=== PATIENT | female | born 1980 | race American Indian/Alaskan Native ===

== ENCOUNTER 2016-09-23 08:46 | Emergency (ER) | payer MEDICAID ==
[2016-09-23 09:36] LABS: Basophils % (Auto) 0.3 % (0.0-1.8); Eosinophils % (Auto) 1.2 % (0.0-4.3); Hemoglobin 12.6 gm/dl (10.1-14.3); Mean Corpuscular HGB Conc 33 % (30-34); Mean Corpuscular Hemoglobin 32 pg (28-32); Mean Corpuscular Volume 98 fl (79-97); Platelet Count 172 K/mm3 (140-440); Red Blood Count 3.89 M/mm3 (3.65-5.03); Red Cell Distribution Width 14.1 % (13.2-15.2); White Blood Count 6.3 K/mm3 (4.5-11.0)
--- NOTE | 2016-09-23 09:47 | Emergency Department Report ---
Entered by ANGEL LINN, acting as scribe for SOLA MENA PA. Chief Complaint: Vaginal Bleeding Stated Complaint: 17WKS/BLEEDING Time Seen by Provider: 09/23/16 09:18 - HPI History of Present Illness: Patient that is 17 weeks presents to the ED c/o vaginal bleeding. Denies abdominal pain, back pain, nausea, vomiting, fever, and chills. - ROS Review of Systems: All system are negative unless stated in HPI above. - Exam Vital Signs: Vital Signs 09/23/16 09:06 Temperature 98.5 F Pulse Rate 90 Respiratory 20 Rate Blood Pressure 120/95 O2 Sat by Pulse 100 Oximetry Physical Exam: General: well nourished, well developed, nontoxic in appearance, in no acute distress Abdomen: TTP in pelvic area. Normal bowel sounds in all quadrants. Back: no CVA tenderness MSE screening note: Focused history and physical exam performed. Due to findings the following was ordered: ED Medical Decision Making - Medical Decision Making Medical decision making: Patient seen by provider in triage area. Appropriate protocol activated and patient to main ED to be seen provider ED Disposition for MSE Condition: Stable This documentation as recorded by the scribe,ANGEL LINN,accurately reflects the service I personally performed and the decisions made by me,SOLA MENA PA.
[2016-09-23 10:45] LABS: Bacteria,Urine 1+ /HPF (Negative); Bilirubin,Urine NEG (Negative); Blood,Urine NEG (Negative); Ketones,Urine NEG (Negative); Leukocyte Esterase,Urine LG (Negative); Mucus,Urine 2+ /HPF; Nitrite,Urine NEG (Negative); Protein,Urine <15 mg/dL mg/dL (Negative); Urobilinogen,Urine < 2.0 mg/dL (<2.0)
--- NOTE | 2016-09-23 11:55 | Ultrasound Report ---
ULTRASOUND OB LESS THAN 14 WEEKS - TRANSABDOMINAL INDICATION: Vaginal bleeding. Serum beta-hCG of 91,667 units. COMPARISON: None similar at this institution. FINDINGS: Transabdominal pelvic sonography performed in this patient with LMP of 06/22/2016 and estimated clinical age of 13 weeks and 2 days. An anteverted, gravid 14.5 x 11.4 x 13.2 cm uterus demonstrates a single, live intrauterine gestation with heart rate of 152 beats per minute. At least 4 uterine fibroids noted, the largest towards the fundus 3.2 x 3.1 cm on image 28, approximately 2.2 cm mid uterine fibroid posteriorly, image 30 and at least 2 lower uterine fibroids on images 32-34, the larger approximately 2.7 x 2.1 cm. Cervix closed, approximately 3.4 cm in length. No pelvic free fluid. Mean crown-rump length of 6.4 cm corresponds to 12 weeks and 6 days. Right ovary is 4.7 x 2.2 x 2.5 cm with a 1.4 cm follicular cyst. Unremarkable 2.8 x 2.4 x 2.1 cm left ovary. CONCLUSION: 1. Single, live intrauterine gestation with an ultrasound estimated age of 12 weeks and 6 days and MASSIMO of 04/01/2017. 2. Few other findings as myomatous uterus, as described. Thank you for the opportunity to participate in this patient's care.
--- NOTE | 2016-09-23 11:58 | Emergency Department Report ---
HPI - General Chief Complaint: Vaginal Bleeding Time Seen by Provider: 09/23/16 09:14 - HPI HPI: This is a 36-year-old Afro-Malagasy female who presents the emergency department with complaint of intermittent vaginal spotting while . The patient thinks she is about 16 weeks as she went to a women's clinic about 3 weeks ago and had a positive test and was told she was 13 weeks at that time based on last menstrual period, which was June 22. With this the patient is . She has been taking vitamins but does not have any [facility] care at this time. She denies any other past medical history. She says that the vaginal spotting is very mild and intermittent. She denies any abdominal pain, back pain, vaginal discharge, dysuria, fever. No recent travel or sick contacts at home. ED Past Medical Hx - Past Medical History Previous Medical History?: Yes Additional medical history: Vaginal delivery x 1 - Surgical History Past Surgical History?: Yes Additional Surgical History: Tonsilectomy - Social History Smoking Status: Current Some Day Smoker Substance Use Type: Marijuana, Prescribed - Medications Home Medications: Home Medications Medication Instructions Recorded Confirmed Last Taken Type Nitrofurantoin [place]/M-Cryst 100 mg PO BID #14 capsule 09/23/16 Unknown Rx [Macrobid CAP] Tablet 1 tab PO DAILY 09/23/16 09/23/16 09/23/16 History ED Review of Systems ROS: Stated complaint: 17WKS/BLEEDING Other details as noted in HPI Comment: All other systems reviewed and negative Constitutional: denies: chills, fever Eyes: denies: eye pain, eye discharge, vision change ENT: denies: ear pain, throat pain Respiratory: denies: cough, shortness of breath, wheezing Cardiovascular: denies: chest pain, palpitations Gastrointestinal: denies: abdominal pain, nausea, diarrhea Genitourinary: other (vaginal spotting). denies: urgency, dysuria, discharge Musculoskeletal: denies: back pain, joint swelling, arthralgia Skin: denies: rash, lesions Neurological: denies: headache, weakness, paresthesias Physical Exam - Physical Exam Vital Signs: Vital Signs 09/23/16 09:06 Temperature 98.5 F Pulse Rate 90 Respiratory 20 Rate Blood Pressure 120/95 O2 Sat by Pulse 100 Oximetry Physical Exam: GENERAL: The patient is well-developed well-nourished. HEENT: Normocephalic. Atraumatic. Extraocular motions are intact. Patient has moist mucous membranes. Pupils equal reactive to light bilaterally. NECK: Supple. Trachea is midline. CHEST/LUNGS: Clear to auscultation. There is no respiratory distress noted. HEART/CARDIOVASCULAR: Regular. There is no tachycardia. There is no gallop rub or murmur. ABDOMEN: Abdomen is soft, nontender. Patient has normal bowel sounds. There is no abdominal distention. SKIN: Skin is warm and dry. NEURO: The patient is awake, alert, and oriented. The patient is cooperative. The patient has no focal neurologic deficits. The patient has normal speech. MUSCULOSKELETAL: There is no tenderness or deformity. There is no limitation range of motion. There is no evidence of acute injury. ED Course Vital Signs 09/23/16 09:06 Temperature 98.5 F Pulse Rate 90 Respiratory 20 Rate Blood Pressure 120/95 O2 Sat by Pulse 100 Oximetry ED Medical Decision Making - Lab Data Result diagrams: 09/23/16 09:19 - Radiology Data Radiology results: report reviewed ultrasound shows a live intrauterine at 12 weeks and 6 days. The patient has a fibroid uterus. - Medical Decision Making 36-year-old female presents with and intermittent vaginal spotting. She thinks she is about 17-16 weeks based on last menstrual cycle but ultrasound today shows intrauterine at about 12 weeks and 6 days. She has been taking vitamins but otherwise no [facility] APPRENTICE care thus far. Patient has a UTI and was treated with Macrobid and will be given a production of the same. She'll be discharged home to follow up with [facility] APPRENTICE in next few days and return to the ER if any worsening of her symptoms or any acute distress. - Differential Diagnosis , threatened miscarriage, spontaneous miscarriage, fibroids, UTI Critical Care Time: No Critical care attestation.: If time is entered above; I have spent that time in minutes in the direct care of this critically ill patient, excluding procedure time. ED Disposition Clinical Impression: Threatened miscarriage Qualifiers: Weeks of gestation: 13 weeks Qualified Code(s): Z3A.13 - 13 weeks gestation of UTI (urinary tract infection) Qualifiers: Urinary tract infection type: acute cystitis Hematuria presence: without hematuria Qualified Code(s): N30.00 - Acute cystitis without hematuria Disposition: DISCHARGED TO HOME OR SELFCARE Is pt being admited?: No Condition: Stable Instructions: (ED), Threatened Miscarriage (ED), Urinary Tract Infection in Women (ED) Additional Instructions: Please follow-up with an [facility] APPRENTICE in the next few days. Continue with your vitamins. I have prescribed you and antibiotics to take for a urinary tract infection. Do not take any other medications that are not prescribed by a physician. Return to the emergency department with any worsening of her symptoms or any acute distress. Prescriptions: Nitrofurantoin Angelina/M-Cryst [Macrobid CAP] 100 mg PO BID #14 capsule Referrals: [facility] [Primary Care Provider] - 3-5 Days DAVID STANLEY MD [Staff Physician] - 3-5 Days [facility] [Provider Group] - 3-5 Days [facility] [Provider [facility]] - 3-5 Days Time of Disposition: 12:21
[2016-09-23] MEDS: MACROBID PO ONE (12:13)
[2016-09-23 12:52] VITALS: BP 124/68
== END 2016-09-23 12:51 | disposition home or self-care (01) ==
LOC: ED 08:46
DX: O20.0 Threatened abortion (principal); N30.00 Acute cystitis without hematuria; F17.200 Nicotine dependence, unspecified, uncomplicated; F12.10 Cannabis abuse, uncomplicated; Z88.8 Allergy status to other drugs, medicaments and biological substances
CPT/HCPCS: 36415; 76805; 81001; 84702; 85025; 86850; 86900; 86901

== ENCOUNTER 2017-03-30 22:47 | Inpatient (IN) | payer MEDICAID ==
[2017-03-30] MEDS ORDERED: PITOCin/NS 20 UNIT/1000ML DRIP 20 UNITS/1,000 ML BAG IV SCH (23:45)
[2017-03-30] MEDS ORDERED: LACTATED RINGERS 2,000 ML ONE (23:54)
[2017-03-30] MEDS ORDERED: BRETHINE SUB-Q PRN (23:55)
[2017-03-30] MEDS ORDERED: SUBLIMAZE IV PRN (23:55)
[2017-03-30] MEDS ORDERED: ePHEDrine SULFATE IV PRN (23:55)
[2017-03-30] MEDS ORDERED: XYLOCAINE 2% INFILTRATI ONE (23:55)
[2017-03-30] MEDS ORDERED: BRETHINE IVP PRN (23:55)
--- NOTE | 2017-03-31 00:02 | History and Physical Report ---
History of Present Illness Date of examination: 03/30/17 Date of admission: 03/30/17 23:38 Chief complaint: Active labor History of present illness: 37 year old female presents with contractions all day. Patient reports active movement. She denies vaginal bleeding or leaking of fluid. Quad screen positive for increased Down's risk; pt. did not have amnio. Pt. is advanced maternal age. One hour sugar test was elevated during ; 3 hour OGTT was normal. Patient has anemia. 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 denies: smoking (smoked THC during but patient states she has quit) - Obstetrical History Expected Date of Delivery: 04/01/17 Actual Gestation: 39 Week(s) 6 Day(s) : 2 Para: 1 Hx # Term Pregnancies: 2 Number of Pregnancies: 0 Spontaneous Abortions: 0 Induced : 0 Number of Living Children: 1 Medications and Allergies Allergies Allergy/AdvReac Type Severity Reaction Status Date / Time citric acid Allergy Rash Verified 09/23/16 09:05 Home Medications Medication Instructions Recorded Confirmed Last Taken Type Nitrofurantoin [place]/M-Cryst 100 mg PO BID #14 capsule 09/23/16 Unknown Rx [Macrobid CAP] Tablet 1 tab PO DAILY 09/23/16 09/23/16 09/23/16 History Active Meds: Active Medications Ephedrine Sulfate (Ephedrine Sulfate) 10 mg IV Q2M PRN PRN Reason: Hypotension Stop: 03/31/17 00:00 Fentanyl (Sublimaze) 100 mcg IV Q2H PRN PRN Reason: Labor Pain Lactated Ringer's (Lactated Ringers) 1,000 mls @ 125 mls/hr IV DIRECT LULA Oxytocin/Sodium Chloride (Pitocin/Ns 20 Unit/1000ml Drip) 20 units in 1,000 mls @ 125 mls/hr IV DIRECT LULA Lidocaine (Xylocaine 2%) 20 ml INFILTRATI ONCE ONE Stop: 03/30/17 23:56 Terbutaline Sulfate (Brethine) 0.25 mg SUB-Q ONCE PRN PRN Reason: Hyperstimulation/Hypertonicity Stop: 03/30/17 23:56 Terbutaline Sulfate (Brethine) 0.25 mg IVP ONCE PRN PRN Reason: Hyperstimulation/Hypertonicity Stop: 03/30/17 23:56 Review of Systems All systems: negative (negative except for uterine contractions) - Vital Signs Vital signs: Vital Signs Pulse BP 88 128/91 03/30/17 23:45 03/30/17 23:45 Temp Pulse Resp BP Pulse Ox 88 128/91 03/30/17 23:45 03/30/17 23:45 - Physical Exam Breasts: Positive: deferred Cardiovascular: Regular rate, Normal S1, Normal S2 Lungs: Positive: Clear to auscultation Abdomen: Positive: normal appearance, soft. Negative: distention, tenderness, guarding, rigidity Genitourinary (Female): Positive: normal external genitalia. Negative: perineal /vulvar lesions (no lesions seen during careful exam with bright light upon admission) Uterus: Positive: enlarged. Negative: tender Anus/Rectum: Positive: normal perianal skin Extremities: Positive: normal. Negative: edema - Obstetrical FHR: category 1 Uterine Contraction Monitor Mode: External Cervical Dilatation: 6.5 Cervical Effacement Percentage: 90 station: -1 Uterine Contraction Pattern: Regular Uterine Contraction Intensity: Moderate Results All other labs normal. Assessment and Plan A: at 39 weeks, 6 days gestation. Active labor. GBS negative. Advanced cervical dilation. P: Admit. Anticipate .
[2017-03-31 00:43] LABS: Urine Drugs of Abuse Note Disclamer
[2017-03-31 00:52] LABS: Hematocrit 40.2 % (30.3-42.9); Hemoglobin 13.9 gm/dl (10.1-14.3); Mean Corpuscular HGB Conc 35 % (30-34); Mean Corpuscular Hemoglobin 33 pg (28-32); Mean Corpuscular Volume 97 fl (79-97); Red Blood Count 4.16 M/mm3 (3.65-5.03); Red Cell Distribution Width 13.7 % (13.2-15.2); White Blood Count 10.4 K/mm3 (4.5-11.0)
[2017-03-31 00:59] LABS: Platelet Count 110 K/mm3 (140-440)
[2017-03-31] MEDS ORDERED: ePHEDrine SULFATE ONE (01:08)
[2017-03-31] MEDS ORDERED: NARCAN 2 MG/2 ML IV PRN (01:23)
[2017-03-31] MEDS ORDERED: ePHEDrine SULFATE IV PRN (01:23)
--- NOTE | 2017-03-31 01:24 | Anesthesia Consultation ---
Anesthesia Consult and Med Hx Date of service: 03/31/17 - Airway Anesthetic Teeth Evaluation: Good ROM Head & Neck: Adequate Mental/Hyoid Distance: Adequate Mallampati Class: Class II Intubation Access Assessment: Probably Good - Pulmonary Exam CTA: Yes - Cardiac Exam Cardiac Exam: RRR - Pre-Operative Health Status ASA Pre-Surgery Classification: ASA2 Proposed Anesthetic Plan: Epidural, Spinal - Pulmonary Hx Asthma: No COPD: No Hx Pneumonia: No - Cardiovascular System Hx Hypertension: No - Central Nervous System Hx Seizures: No Hx Psychiatric Problems: No - Endocrine Hx Renal Disease: No Hx End Stage Renal Disease: No Hx Hypothyroidism: No Hx Hyperthyroidism: No - Hematic Hx Sickle Cell Disease: No - Other Systems Hx Alcohol Use: Yes - Additional Comments Anesthesia Medical History Comments: IUP
[2017-03-31] MEDS ORDERED: fentaNYL-BUPIV 2 MCG/ML-0.125% 200 MCG/100 ML BAG EPIDURAL SCH (02:00)
[2017-03-31] MEDS: LACTATED RINGERS 1,000 ML IV SCH ×3 (03:56→03:57)
--- NOTE | 2017-03-31 04:03 | Event Note ---
Date: 03/31/17 Patient is comfortable since receiving epidural. SVE 9/100/0. Approximately 10 minutes of minimal variability noted on FHR tracing; normal baseline rate. FSE applied/AROM; thin meconium stained amniotic fluid, moderate amount noted. Lateral position, fluid bolus, and O2 per face mask initiated. FHR baseline now 130 with moderate variability and accelerations. Will augment labor.
[2017-03-31] MEDS ORDERED: PITOCin/NS 30 UNIT/500ML 30 UNITS/500 ML BAG IV SCH ×2 (05:00)
[2017-03-31] MEDS ORDERED: TUCKS PAD TP PRN (05:09)
[2017-03-31] MEDS ORDERED: TYLENOL PO PRN (05:09)
--- NOTE | 2017-03-31 05:18 | Procedure Note ---
OB Delivery Note - Vaginal Delivery presentation: vertex Delivery position: OA Intrapartum events: meconium, other(please specify) (short cord) Delivery induction: none Delivery augmentation: rupture of membranes, pitocin Delivery monitor: external FHT, external uterine Route of delivery: Delivery placenta: spontaneous Delivery cord: other (short umbilical cord) Episiotomy: none Delivery laceration: none Anesthesia: epidural Delivery comments: Spontaneous vaginal delivery of liveborn female weighing 6 lb. 4 oz. over intact perineum with apgars of 8/9. Thin meconium stained amniotic fluid. Short cord. 3 vessel cord double clamped and cut and baby taken immediately to radiant warmer after delivery. Bulb suctioned by NICU team. Spontaneous cry and respirations. Spontaneous delivery of intact placenta and membranes by Rivas mechanism. EBL 250 ml. Pitocin to IV fluids after delivery of placenta. Placenta to path. Vaginal sweep negative. No lacerations noted. Mother and baby stable in birthing room.
[2017-03-31] MEDS ORDERED: SODIUM CHLORIDE FLUSH SYRINGE 10 ML IV PRN (06:00)
[2017-03-31] MEDS: MOTRIN PO SCH ×3 (08:56→22:31)
[2017-03-31] MEDS: NORCO 5/325 PO PRN ×2 (12:49→22:29)
[2017-03-31 17:07] LABS: Hematocrit 34.9 % (30.3-42.9); Hemoglobin 11.6 gm/dl (10.1-14.3)
[2017-03-31] MEDS: FEOSOL PO SCH (22:27)
[2017-04-01] MEDS: NORCO 5/325 PO PRN ×2 (05:00→13:05)
[2017-04-01] MEDS: MOTRIN PO SCH ×2 (05:00→13:05)
--- NOTE | 2017-04-01 09:23 | Discharge Summary ---
Providers - Providers Date of Admission: 03/30/17 23:38 Date of discharge: 04/01/17 Attending physician: SHELLIE LARES MD Primary care physician: SHELLIE LARES MD Hospitalization Reason for admission: active labor Delivery: Episiotomy: none Laceration: none Incision: normal Other procedures: none Discharge diagnosis: IUP at term delivered baby: female Condition at discharge: Good Disposition: DC-01 TO HOME OR SELFCARE Plan - Provider Discharge Summary Activity: routine, no sex for 6 weeks, no strenuous exercise Diet: routine Instructions: routine Additional instructions: [] Smoking cessation referral if applicable(refer to patient education folder for contact #) [] Refer to [facility]'s [facility] Booklet Call your doctor immediately for: * Fever > 100.5 * Heavy vaginal bleeding ( >1 pad per hour) * Severe persistent headache * Shortness of breath * Reddened, hot, painful area to leg or breast * Drainage or odor from incision. * Keep incision clean and dry at all times and follow doctor's instructions regarding bathing/showering - Follow up plan Follow up: SHELLIE LARES MD [Primary Care Provider] - 6 Weeks
--- NOTE | 2017-04-01 09:23 | Progress Note ---
Assessment and Plan A: PPD #1 -stable P; Discharge home today Subjective - Subjective Date of service: 04/01/17 Principal diagnosis: Patient reports: appetite normal : doing well Objective - Vital Signs Latest vital signs: Vital Signs Temp Pulse Resp BP 04/01/17 01:21 98.1 F 72 18 113/67 03/31/17 16:25 97.1 F L 100 H 18 125/95 Intake and Output 03/31/17 04/01/17 04/01/17 22:59 06:59 14:59 Intake Total 360 240 Balance 360 240 Intake: Oral 120 Intake, Free Water 240 240 Other: Total, Intake Amount 120 # Voids Indwelling Catheter 2 Void 1 - Exam Breasts: Present: deferred Cardiovascular: Present: Regular rate Lungs: Present: Clear to auscultation Abdomen: Present: soft Vulva: both: normal Uterus: Present: fundal height below umbilicus Extremities: Present: normal Deep Tendon Reflex Grade: Normal +2
[2017-04-01] MEDS: FEOSOL PO SCH (13:05)
--- NOTE | 2017-04-01 13:19 | Progress Note ---
Subjective Date of service: 04/01/17 Principal diagnosis: Interval history: 1st day after normal vaginal delivery Patient is in the room, comfortable. Pain is mostly controlled with pain meds. Ambulated well. No residual neurological deficit. No anesthesia complications Objective - Constitutional Vitals: Vital Signs - 12hr 04/01/17 04/01/17 01:21 08:15 Temperature 98.1 F 97.6 F Pulse Rate 72 80 Respiratory 18 18 Rate Blood Pressure 113/67 115/71 [Right] - Labs CBC & Chem 7: 03/31/17 16:42
[2017-04-01 17:03] VITALS: BP 123/93
== END 2017-04-01 18:47 | disposition home or self-care (01) | DRG 775 ==
LOC: TRG 22:47 → LD 23:38 → OB 03-31 06:31
PROVIDERS: ADMIT Obstetrics & Gynecology; ATTEND Obstetrics & Gynecology
PROC: 10E0XZZ Delivery of Products of Conception, External Approach (ICD-10-PCS; principal; 2017-03-31)
PROC: 3E0R3BZ Introduction of Anesthetic Agent into Spinal Canal, Percutaneous Approach (ICD-10-PCS; 2017-03-31)
PROC: 00HU33Z Insertion of Infusion Device into Spinal Canal, Percutaneous Approach (ICD-10-PCS; 2017-03-31)
DX: O77.0 Labor and delivery complicated by meconium in amniotic fluid (principal); O69.3XX0 Labor and delivery complicated by short cord, not applicable or unspecified; Z3A.39 39 weeks gestation of pregnancy; Z37.0 Single live birth; Z88.8 Allergy status to other drugs, medicaments and biological substances
CPT/HCPCS: 36415; 80307; 85014; 85018; 85027; 86850; 86900; 86901; 88307; J2590; J3010; J7120